=== PATIENT | female | born 1975 | race Caucasian/White ===

== ENCOUNTER → 2024-01-23 | Outpatient (CLI) | payer BC ==
--- NOTE | 2024-01-23 09:08 | CT ---
EXAMINATION TYPE: CT abdomen pelvis wo con DATE OF EXAM: 01/23/2024 8:58 AM COMPARISON: CT abdomen pelvis most recent from CLINICAL INDICATION: Female, 48 years old with history of Z87.442 personal hx urinary calculi; RUQ pa in, hx renal stones TECHNIQUE: Axial CT abdomen pelvis wo con;Sagittal and coronal reformats were created on a separate workstation. Contrast used: mL of , (none if empty) Oral contrast used: without Oral Contrast (none if empty) CT DLP: 770 mGycm, Automated exposure control for dose reduction was used. FINDINGS: LOWER CHEST: Unremarkable ABDOMEN LIVER: Unremarkable GALLBLADDER AND BILE DUCTS: Unremarkable. PANCREAS: Unremarkable. SPLEEN: Unremarkable. ADRENAL GLANDS: Unremarkable. KIDNEYS AND URETERS: Left renal calculi measuring up to 5 mm. No evidence for obstructive uropathy. PELVIS BLADDER: No evidence for wall thickening or mass given limitations of exam. REPRODUCTIVE: Pedunculated fibroid extends off the anterior uterus measuring up to 3.1 cm. ABDOMEN & PELVIS STOMACH AND BOWEL: No evidence of bowel obstruction. Scattered colonic diverticula. The appendix is n ormal. Moderate to large amount stool in the right colon. PERITONEUM/RETROPERITONEUM: No evidence of pneumoperitoneum or free fluid. VASCULATURE: No evidence of aortic aneurysm. MUSCULOSKELETAL: No acute osseous abnormalities LYMPH NODES: No gross evidence for lymphadenopathy. SOFT TISSUE/ABDOMINAL WALL: Unremarkable IMPRESSION: 1. Nonobstructing left renal calculi. No evidence for hydronephrosis. 2. Moderate to large amount stool in the right colon. 3. Colonic diverticulosis. 4. Fat-containing umbilical hernia. 5. Fibroid uterus with exophytic fibroid projecting into the urinary bladder. [facility], , 01/23/2024 9:05 AM
== END | disposition home or self-care (01) ==
LOC: RADCTMAIN 08:34
PROVIDERS: ATTEND Family Medicine
DX: K42.9 Umbilical hernia without obstruction or gangrene (principal); D25.9 Leiomyoma of uterus, unspecified; K57.30 Diverticulosis of large intestine without perforation or abscess without bleeding; N20.0 Calculus of kidney; Z87.442 Personal history of urinary calculi
CPT/HCPCS: 74176

== ENCOUNTER 2024-01-24 14:21 | Emergency (ER) | payer BC ==
[2024-01-24 14:49] LABS: Basophils % (A) 0 %; Eosinophils # (A) 0.1 k/uL (0-0.7); Eosinophils % (A) 1 %; HCT 41.9 % (34.0-46.0); HGB 13.9 gm/dL (11.4-16.0); Lymphocytes % (A) 20 %; MCH 29.9 pg (25.0-35.0); MCHC 33.1 g/dL (31.0-37.0); MCV 90.6 fL (80.0-100.0); Mean Platelet Volume 7.8; Monocytes # (A) 0.6 k/uL (0-1.0); Monocytes % (A) 6 %; Neutrophils % (A) 72 %; Platelet Count 351 k/uL (150-450); RBC 4.63 m/uL (3.80-5.40); RDW 12.7 % (11.5-15.5); WBC 9.8 k/uL (3.8-10.6)
--- NOTE | 2024-01-24 14:56 | ED ---
Abdominal Pain HPI - General Source: patient, RN notes reviewed Mode of arrival: ambulatory Limitations: no limitations <Darby Ennis - Last Filed: 01/24/24 14:56> - General Source: patient, RN notes reviewed, old records reviewed Mode of arrival: ambulatory Limitations: no limitations - History of Present Illness MD Complaint: abdominal pain -: days(s) Location: RUQ, epigastric Radiation: RUQ, epigastric Migration to: epigastric Severity: moderate Severity scale (1-10): 5 Quality: stabbing, aching Consistency: intermittent Improves With: nothing Worsens With: nothing Associated Symptoms: nausea <Hamilton Escobar - Last Filed: 01/26/24 21:42> - General Chief Complaint: Abdominal Pain Stated Complaint: RUQ pain Time Seen by Provider: 01/24/24 14:56 - History of Present Illness Initial Comments: Quick note: 48-year-old female presented to the ER with a chief complaint of right flank and right upper quadrant abdominal pain. She states started in her back and now is endorsing in her right upper quadrant. Associated nausea. Patient is taking Wegovy. Patient believed it was a kidney stone and took Flomax for the past 2 days. Has been taking [place] for pain. No fevers. (Darby Ennis) This is a 48 female with right upper quadrant abdominal pain seen by primary care and had a CT scan for possible kidney stone yesterday no improvement in s ymptoms and patient was recently started on Wegovy. Patient has no fevers no nausea no vomiting (Hamilton Escobar) - Related Data Home Medications Medication Instructions Recorded Confirmed ALPRAZolam [Xanax] 0.5 mg PO HS PRN 01/24/24 01/24/24 HYDROcodone/APAP 7.5-325MG [[place] 1 tab PO TID PRN 01/24/24 01/24/24 7.5-325] Lisdexamfetamine Dimesylate 40 mg PO DAILY 01/24/24 01/24/24 [Vyvanse] Semaglutide [Wegovy] 0.5 mg SQ FR 01/24/24 01/24/24 Tamsulosin HCl [Flomax] 0.4 mg PO DAILY PRN 11/12/24 11/12/24 Allergies Allergy/AdvReac Type Severity Reaction Status Date / Time sulfamethoxazole AdvReac Unknown Verified 01/24/24 16:51 [From Bactrim] trimethoprim [From Bactrim] AdvReac Unknown Verified 01/24/24 16:51 Review of Systems ROS Other: All systems not noted in ROS Statement are negative. <Darby Ennis - Last Filed: 01/24/24 14:56> ROS Other: All systems not noted in ROS Statement are negative. <Hamilton Escobar - Last Filed: 01/26/24 21:42> ROS Statement: Those systems with pertinent positive or pertinent negative responses have been documented in the HPI. Past Medical History Past Medical History: No Reported History Additional Past Surgical History / Comment(s): ovarian cyst removal Past Psychological History: Anxiety Smoking Status: Vaper Past Alcohol Use History: Rare Past Drug Use History: None Reported <Darby Ennis - Last Filed: 01/24/24 14:56> General Exam Limitations: no limitations <TetoDarby fernando - Last Filed: 01/24/24 14:56> General appearance: alert, in no apparent distress Head exam: Present: atraumatic, normocephalic, normal inspection Eye exam: Present: normal appearance, PERRL, EOMI. Absent: scleral icterus, conjunctival injection, periorbital swelling ENT exam: Present: normal exam, mucous membranes moist Neck exam: Present: normal inspection. Absent: tenderness, meningismus, lymphadenopathy Respiratory exam: Present: normal lung sounds bilaterally. Absent: respiratory distress, wheezes, rales, rhonchi, stridor Cardiovascular Exam: Present: regular rate, normal rhythm, normal heart sounds. Absent: systolic murmur, diastolic murmur, rubs, gallop, clicks GI/Abdominal exam: Present: soft, normal bowel sounds. Absent: distended, tenderness, guarding, rebound, rigid Extremities exam: Present: normal inspection, full ROM, normal capillary refill. Absent: tenderness, pedal edema, joint swelling, calf tenderness Back exam: Present: normal inspection Neurological exam: Present: alert, oriented X3, CN II-XII intact Psychiatric exam: Present: normal affect, normal mood Skin exam: Present: warm, dry, intact, normal color. Absent: rash <Hamilton Escobar - Last Filed: 01/26/24 21:42> - General Exam Comments Initial Comments: Visual Physical Exam Vital signs reviewed General: Well-appearing, nontoxic, no acute distress. Head: Normocephalic, atraumatic Eyes: PERRLA, EOMI ENT: Airway patent Chest: Nonlabored breathing Skin: No visual rash, normal skin tone Neuro: Alert and oriented 3 Musculoskeletal: No gross abnormalities (Darby Ennis) Course <Hamilton Escobar - Last Filed: 01/26/24 21:42> Vital Signs 01/24/24 01/24/24 14:27 17:27 Temperature 98.1 F 97.8 F Pulse Rate 93 77 Respiratory 20 18 Rate Blood Pressure 159/84 126/69 O2 Sat by Pulse 99 99 Oximetry - Reevaluation(s) Reevaluation #1: Medical record is reviewed (Hamilton Escobar) Reevaluation #2: Patient symptoms improved here in the ER refusing any medication (Jose Francisco Escobar) Reevaluation #3: Patient informed of results questions answered (Hamilton Escobar) Reevaluation #4: Was pt. sent in by a medical professional or institution (, PA, PROFESSOR OF ART, urgent care, hospital, or halfway...) When possible be specific @ -no Did you speak to anyone other than the patient for history (EMS, parent, family, police, friend...)? What history was obtained from this source @ -no Did you review nursing and triage notes (agree or disagree)? Why? @ -agree Are old charts reviewed (outside hosp., previous admission, EMS record, old EKG, old radiological studies, urgent care reports/EKG's, halfway records)? Report findings @ -yes Differential Diagnosis (chest pain, altered mental status, abdominal pain women, abdominal pain men, vaginal bleeding, weakness, fever, dyspnea, syncope, heada [place], dizziness, GI bleed, back pain, seizure, CVA, palpatations, mental health, musculoskeletal)? @ -prior EKG interpreted by me (3pts min.). @ -yes X-rays interpreted by me (1pt min.). @ -no CT interpreted by me (1pt min.). @ -Yes patient had a CT scan scan from day prior is reviewed showing no acute process U/S interpreted by me (1pt. min.). @ -Yes positive for biliary gallstones What testing was considered but not performed or refused? (CT, X-rays, U/S, labs)? Why? @ -none What meds were considered but not given or refused? Why? @ -none Did you discuss the management of the patient with other professionals (professionals i.e. Dr., PA, PROFESSOR OF ART, lab, RT, psych nurse, social staff worker, vp client services, teacher, airframe technical officer, case assembler)? Give summary @ -no Was smoking cessation discussed for >3mins.? @ -no Was critical care preformed (if so, how long)? @ -no Were there social determinants of health that impacted care today? How? (Homelessness, low income, unemployed, alcoholism, drug addiction, transportation, low edu. Level, literacy, decrease access to med. care, [facility], rehab)? @ -none Was there de-escalation of care discussed even if they declined (Discuss DNR or withdrawal of care, Hospice)? DNR status @ -no What co-morbidities impacted this encounter? (DM, HTN, Smoking, COPD, CAD, Cancer, CVA, ARF, Chemo, Hep., AIDS, mental health diagnosis, sleep apnea, morbid obesity)? @ -none Was patient admitted / discharged? Hospital course, mention meds given and route, prescriptions, significant lab abnormalities, going to OR and other pertinent info. @ - 48 female presents today for evaluation regards to abdominal pain, pain does appear to be from biliary colic as she has cholelithiasis on ultrasound negative CT scan yesterday lab testing is normal here and she feels well will be discharged home Discharge Undiagnosed new problem with uncertain prognosis? @ -no Drug Therapy requiring intensive monitoring for toxicity (Heparin, Nitro, Insulin, Cardizem)? @ -no Were any procedures done? @ -no Diagnosis/symptom? @ -Biliary colic and cholelithiasis Acute, or Chronic, or Acute on Chronic? @ -Acute Uncomplicated (without systemic symptoms) or Complicated (systemic symptoms)? @ -Complicated Side effects of treatment? @ -no Exacerbation, Progression, or Severe Exacerbation? @ -exacerbation Poses a threat to life or bodily function? How? (Chest pain, [place], ND, pneumonia, PE, COPD, DKA, ARF, appy, cholecystitis, CVA, Diverticulitis, Homicidal, Suicidal, threat to staff... and all critical care pts) @ -yes (Hamilton Escobar) Reevaluation #5: Differential Abdominal Pain Women: Appendicitis, Cholecystitis, diverticulosis, ischemic bowel, pancreatitis, hepatitis, UTI, gastroenteritis, AAA, incarcerated hernia, bowel obstruction, constipation, inflammatory bowel, hepatitis, peptic ulcer disease, splenic infarction, perforated viscus, vulvitis, ovarian torsion, PID, kidney stone, placenta abruption, this is not meant to be an all-inclusive list (Hamilton Escobar) Medical Decision Making - Lab Data Result diagrams: 01/24/24 13:38 <Darby Ennis - Last Filed: 01/24/24 14:56> - Lab Data Result diagrams: 01/24/24 13:38 01/24/24 13:38 - EKG Data -: EKG Interpreted by Me (EKG is sinus 80 ID [id number] QRS 90 QTc 400) - Radiology Data Radiology results: report reviewed (Ultrasound gallbladder positive for cholelithiasis), image reviewed <Hamilton Escobar - Last Filed: 01/26/24 21:42> - Medical Decision Making I performed the quick note portion of this chart. Electronically signed by Darby Ennis PA-C (Darby Ennis) 48 female presents today for evaluation regards to abdominal pain, pain does appear to be from biliary colic as she has cholelithiasis on ultrasound negative CT scan yesterday lab testing is normal here and she feels well will be discharged home (Hamilton Escobar) - Lab Data Lab Results 01/24/24 01/24/24 01/24/24 Range/Units 13:38 13:38 16:04 WBC 9.8 (3.8-10.6) k/uL RBC 4.63 (3.80-5.40) m/uL Hgb 13.9 (11.4-16.0) gm/dL Hct 41.9 (34.0-46.0) % MCV 90.6 (80.0-100.0) fL MCH 29.9 (25.0-35.0) pg MCHC 33.1 (31.0-37.0) g/dL RDW 12.7 (11.5-15.5) % Plt Count 351 (150-450) k/uL MPV 7.8 Neutrophils % 72 % Lymphocytes % 20 % Monocytes % 6 % Eosinophils % 1 % Basophils % 0 % Neutrophils # 7.0 (1.3-7.7) k/uL Lymphocytes # 2.0 (1.0-4.8) k/uL Monocytes # 0.6 (0-1.0) k/uL Eosinophils # 0.1 (0-0.7) k/uL Basophils # 0.0 (0-0.2) k/uL Sodium 136 L (137-145) mmol/L Potassium 4.3 (3.5-5.1) mmol/L Chloride 106 (98-107) mmol/L Carbon Dioxide 25 (22-30) mmol/L Anion Gap 5 mmol/L BUN 16 (7-17) mg/dL Creatinine 0.63 (0.52-1.04) mg/dL Est GFR (CKD-EPI)AfAm >90 (>60 ml/min/1.73 sqM) Est GFR (CKD-EPI)NonAf >90 (>60 ml/min/1.73 sqM) Glucose 87 (74-99) mg/dL Plasma Lactic Acid Carlos 0.8 (0.7-2.0) mmol/L Calcium 9.4 (8.4-10.2) mg/dL Total Bilirubin 0.4 (0.2-1.3) mg/dL AST 24 (14-36) U/L ALT 13 (4-34) U/L Alkaline Phosphatase 68 (38-126) U/L Total Protein 7.4 (6.3-8.2) g/dL Albumin 4.5 (3.5-5.0) g/dL Amylase 53 (30-110) U/L Lipase 134 (23-300) U/L Urine Color Urine Appearance (Clear) Urine pH (5.0-8.0) Ur Specific [place] (1.001-1.035) Urine Protein (Negative) Urine Glucose (UA) (Negative) Urine Ketones (Negative) Urine Blood (Negative) Urine Nitrite (Negative) Urine Bilirubin (Negative) Urine Urobilinogen (<2.0) mg/dL Ur Leukocyte Esterase (Negative) Urine RBC (0-5) /hpf Urine WBC (0-5) /hpf Ur Squamous Epith Cells (0-4) /hpf Urine Mucus (None) /hpf 01/24/24 Range/Units 16:37 WBC (3.8-10.6) k/uL RBC (3.80-5.40) m/uL Hgb (11.4-16.0) gm/dL Hct (34.0-46.0) % MCV (80.0-100.0) fL MCH (25.0-35.0) pg MCHC (31.0-37.0) g/dL RDW (11.5-15.5) % Plt Count (150-450) k/uL MPV Neutrophils % % Lymphocytes % % Monocytes % % Eosinophils % % Basophils % % Neutrophils # (1.3-7.7) k/uL Lymphocytes # (1.0-4.8) k/uL Monocytes # (0-1.0) k/uL Eosinophils # (0-0.7) k/uL Basophils # (0-0.2) k/uL Sodium (137-145) mmol/L Potassium (3.5-5.1) mmol/L Chloride (98-107) mmol/L Carbon Dioxide (22-30) mmol/L Anion Gap mmol/L BUN (7-17) mg/dL Creatinine (0.52-1.04) mg/dL Est GFR (CKD-EPI)AfAm (>60 ml/min/1.73 sqM) Est GFR (CKD-EPI)NonAf (>60 ml/min/1.73 sqM) Glucose (74-99) mg/dL Plasma Lactic Acid Carlos (0.7-2.0) mmol/L Calcium (8.4-10.2) mg/dL Total Bilirubin (0.2-1.3) mg/dL AST (14-36) U/L ALT (4-34) U/L Alkaline Phosphatase (38-126) U/L Total Protein (6.3-8.2) g/dL Albumin (3.5-5.0) g/dL Amylase (30-110) U/L Lipase (23-300) U/L Urine Color Colorless Urine Appearance Clear (Clear) Urine pH 5.5 (5.0-8.0) Ur Specific [place] 1.013 (1.001-1.035) Urine Protein Negative (Negative) Urine Glucose (UA) Negative (Negative) Urine Ketones 1+ H (Negative) Urine Blood Trace H (Negative) Urine Nitrite Negative (Negative) Urine Bilirubin Negative (Negative) Urine Urobilinogen <2.0 (<2.0) mg/dL Ur Leukocyte Esterase Negative (Negative) Urine RBC 2 (0-5) /hpf Urine WBC <1 (0-5) /hpf Ur Squamous Epith Cells 1 (0-4) /hpf Urine Mucus Rare H (None) /hpf Disposition <Darby Ennis - Last Filed: 01/24/24 14:56> Is patient prescribed a controlled substance at d/c from ED?: No <Hamilton Escobar - Last Filed: 01/26/24 21:42> Clinical Impression: Biliary colic, Cholelithiasis Disposition: HOME SELF-CARE Condition: Good Instructions (If sedation given, give patient instructions): Biliary Colic (ED), Gallstones (ED) Referrals: Amairani Burgos DO [Primary Care Provider] - 1-2 days Primo Graff DO [Doctor of Osteopathic Medicine] - 1-2 days
[2024-01-24 15:01] LABS: ALT 13 U/L (4-34); AST 24 U/L (14-36); African American GFR (CKD) >90 (>60 ml/min/1.73 sqM); Albumin 4.5 g/dL (3.5-5.0); Alkaline Phosphatase 68 U/L (38-126); Amylase 53 U/L (30-110); Anion Gap 5 mmol/L; Blood Urea Nitrogen 16 mg/dL (7-17); Calcium 9.4 mg/dL (8.4-10.2); Carbon Dioxide 25 mmol/L (22-30); Chloride 106 mmol/L (98-107); Glucose 87 mg/dL (74-99); Lipase 134 U/L (23-300); Non-African American GFR(CKD) >90 (>60 ml/min/1.73 sqM); Potassium 4.3 mmol/L (3.5-5.1); Sodium 136 mmol/L (137-145); Total Bilirubin 0.4 mg/dL (0.2-1.3); Total Protein 7.4 g/dL (6.3-8.2)
--- NOTE | 2024-01-24 15:43 | US ---
EXAMINATION TYPE: US gallbladder DATE OF EXAM: 01/24/2024 COMPARISON: CT: 01/23/24 CLINICAL INDICATION: Female, 48 years old with history of RUQ abd pain; RUQ pain x 3 days TECHNIQUE: Grayscale and color Doppler imaging of the right upper quadrant was performed. FINDINGS: EXAM MEASUREMENTS: Liver Length: 11.5 cm Gallbladder Wall: 0.14 cm CBD: 0.40 cm Right Kidney: 11.0 x 4.6 x 4.4 cm INSURANCE BILLER NOTES: Pancreas: wnl Liver: wnl Gallbladder: multiple gallstones seen Evidence for sonographic Raymond's sign: Slightly tender CBD: wnl Right Kidney: isoechoic area seen mid pole measuring 3.0 x 2.5 x 1.8cm, possible column of Ras vs other etiology IMPRESSION: 1. Cholelithiasis [facility], , 01/24/2024 3:41 PM
[2024-01-24 17:03] LABS: Appearance,Urine Clear (Clear); Bilirubin,Urine Negative (Negative); Blood,Urine Trace (Negative); Color,Urine Colorless; Glucose,Urine (UA) Negative (Negative); Ketones,Urine 1+ (Negative); Leukocyte Esterase,Urine Negative (Negative); Mucus,Urine Rare /hpf; Nitrite,Urine Negative (Negative); PH, Urine 5.5 (5.0-8.0); Protein,Urine Negative (Negative); RBC,Urine 2 /hpf (0-5); Specific Gravity,Urine 1.013 (1.001-1.035); Squamous Epithelial Cell,Urine 1 /hpf (0-4); Urobilinogen,Urine <2.0 mg/dL (<2.0); WBC,Urine <1 /hpf (0-5)
[2024-01-24] MEDS: KETOROLAC 15 MG/ML 1 ML VIAL IVP STA (17:22)
[2024-01-24] MEDS: ONDANSETRON 4 MG/2 ML VIAL IVP STA (17:23)
[2024-01-24] MEDS: SODIUM CHLORIDE 0.9% 1,000 ML IV STA (17:23)
[2024-01-24] MEDS: IBUPROFEN 600 MG STARTER PACK 4 TAB BTL PO STA (17:24)
[2024-01-24] MEDS: ONDANSETRON 4 MG ODT STARTER PACK 2 TAB BTL PO STA (17:24)
[2024-01-24] MEDS: SENNOSIDES-DOCUSATE SODIUM 1 EACH TAB PO STA (17:25)
[2024-01-24 17:28] VITALS: BP 126/69; PULSE 77; RESP 18; TEMP 97.8
== END 2024-01-24 17:28 | disposition home or self-care (01) ==
LOC: EC 14:21
DX: K80.50 Calculus of bile duct without cholangitis or cholecystitis without obstruction (principal); K80.20 Calculus of gallbladder without cholecystitis without obstruction; F17.290 Nicotine dependence, other tobacco product, uncomplicated; Z88.1 Allergy status to other antibiotic agents; Z88.2 Allergy status to sulfonamides
CPT/HCPCS: 36415; 80053; 82150; 83605; 83690; 85025; 81001; 76705; 99284; S0119